=== PATIENT | female | born 2000 | race Caucasian/White ===

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

== ENCOUNTER 2018-06-01 13:46 | Emergency (ER) | payer SELFPAY ==
[~2018-06-01] VITALS: Ht 170.2 cm; Wt 77.3 kg
[~2018-06-01 13:46] MED LIST changes: +PREDNISONE10 MG PO; +PROAIR HFA0.09 MG/AC IH; +XANAX 0.5MG0.5 MG PO
[2018-06-01 13:53] VITALS: BP 133/77; TEMP 98.7
[2018-06-01] MEDS ORDERED: PREDNISONE20 MG PO (16:05)
[2018-06-01 18:12] VITALS: PULSE 113
== END 2018-06-01 18:12 | disposition home or self-care (01) ==
LOC: COL.ER 13:46
DX: J45.901 Unspecified asthma with (acute) exacerbation (principal)
CPT/HCPCS: J1100; J7512

== ENCOUNTER 2019-04-09 21:28 | Emergency (ER) | payer MEDICAID ==
[~2019-04-09] VITALS: Ht 170.2 cm; Wt 86.4 kg
[~2019-04-09 21:28] MED LIST changes: +PREDNISONE20 MG PO
[2019-04-09 21:31] VITALS: BP 124/64; TEMP 97.4
[2019-04-09] MEDS ORDERED: AMOXICILLIN 50500 MG PO (22:15)
[2019-04-09] MEDS ORDERED: ULTRAM 50MG TAB50 MG PO (22:15)
[2019-04-09 22:40] VITALS: PULSE 73
== END 2019-04-09 22:47 | disposition home or self-care (01) ==
LOC: COL.ER 21:28
DX: K02.9 Dental caries, unspecified (principal); J45.909 Unspecified asthma, uncomplicated; F17.210 Nicotine dependence, cigarettes, uncomplicated

== ENCOUNTER 2019-08-05 19:32 | Emergency (ER) | payer MEDICAID ==
[~2019-08-05] VITALS: Ht 170.2 cm; Wt 86.4 kg
[~2019-08-05 19:32] MED LIST changes: +AMOXICILLIN 50500 MG PO; +ULTRAM 50MG TAB50 MG PO
[2019-08-05 19:43] VITALS: BP 134/84; TEMP 98.2
[2019-08-05] MEDS ORDERED: KURVELO 30 MCG-1 TAB PO (20:00)
[2019-08-05 20:33] LABS: STREP SCREEN NEGATIVE
[2019-08-05] MEDS ORDERED: AMOXICILLIN 8751 TAB PO (20:40)
[2019-08-05 21:09] VITALS: PULSE 89
== END 2019-08-05 21:10 | disposition home or self-care (01) ==
LOC: COL.ER 19:32
PROVIDERS: Physician Assistant
DX: J03.90 Acute tonsillitis, unspecified (principal)
CPT/HCPCS: J8540

== ENCOUNTER 2023-01-23 16:37 | Inpatient (IN) | payer MEDICAID ==
[2023-01-23] VITALS (18 sets, daily range): BP systolic 113–142; BP diastolic 62–89; PULSE 73–98; TEMP 97.3–98.5
[~2023-01-23] VITALS: Ht 170.2 cm; Wt 93.2 kg
[~2023-01-23 16:37] MED LIST changes: +AMOXICILLIN 8751 TAB PO; +KURVELO 30 MCG-1 TAB PO; +PREDNISONE50 MG PO; +ZITHROMAX 250M250 MG PO
--- NOTE | 2023-01-23 16:50 | NUR ---
PT ambulatory to unit with spouse and daughter. Pt reports no vaginal bleeding, no lof, CTX every 2-3 min, positive movement. PT is scheduled for induction tomorrow. PT uncomfortable with CTX.
[2023-01-23 17:22] LABS: BASO # 0.1 K/mm3 (0.0-0.2); BASO % 0.3 % (0.0-2.0); EOS # 0.1 K/mm3 (0.0-0.7); EOS % 0.6 % (0.0-4.0); GRAN # 11.2 K/mm3 (1.4-6.5); HEMOGLOBIN 11.4 g/dl (12.5-16.0); LYMPH # 3.7 K/mm3 (1.2-3.4); LYMPH % 23.4 % (20.0-51.0); MEAN CELL VOLUME 86 fl (80.0-100.0); MEAN CORPUSCULAR HEMOGLOBIN 28 pg (27-31); MEAN CORPUSCULAR HGB CONC 33 g/dl (33.0-37.0); MEAN PLATELET VOLUME 11.8 fl (7.4-10.4); MONO # 0.8 K/mm3 (0.1-0.6); MONO % 5.2 % (1.7-9.3); PLATELET COUNT 274 K/mm3 (130-400); RED BLOOD COUNT 4.04 M/mm3 (4.10-5.30); REDCELL DISTRIBUTION WIDTH-CV 13.8 % (11.5-14.5)
[2023-01-23 17:31] LABS: HEMATOCRIT 34.9 % (37.0-47.0)
--- NOTE | 2023-01-23 18:00 | NUR ---
DR. TOWNSEND AT BEDSIDE FOR SVE AND AROM. SVE /-2. PT TOLERATED WELL. 180 AROM SMALL AMOUNT OF CLEAR FLUID. EFM CAT 1.
[2023-01-23 18:15] LABS: ALBUMIN 2.5 gm/dL (3.5-5.0); BILIRUBIN,TOTAL 0.3 mg/dL (0.2-1.2); CALCIUM 8.5 mg/dL (8.4-10.2); CREATININE, serum 0.67 mg/dL (0.57-1.11); POTASSIUM 3.4 mmol/L (3.5-4.5); TOTAL PROTEIN 6.9 gm/dL (6.2-8.1)
[2023-01-23] MEDS ORDERED: PROVENTIL0.09 MG/A1 IH (18:17)
[2023-01-23] MEDS ORDERED: ARNUITY IH (18:17)
[2023-01-23] MEDS ORDERED: WELLBUTRIN XL300 M1 PO (18:18)
[2023-01-23] MEDS ORDERED: ACTIGALL 300MG300 MG PO (18:18)
--- NOTE | 2023-01-23 21:00 | NUR ---
1821- PATIENT ASSISTED TO SIDE OF THE BED. DIFFICULTY TRACING HEART RATE DUE TO MATERNAL POSITIONING. PULSE OX APPLIED. 1824- RICK RADER AT BEDSIDE. EXPLAINS PROCEDURE AND RISK OF EPIDURAL. 1830- SINGLE SHOT ADMINISTERED BY RICK RADER. SEE ANESTHESIA RECORDS. 1838- PATIENT REPOSITIONED TO [facility]. PLAN OF CARE AND SAFETY PRECAUTIONS EXPLAINED TO PATIENT AND FAMILY. 1944- DIFFICULTY TRACING CONTRACTIONS DUE TO MATERNAL POSITONING. TOCO ADJUSTED. 1999- DIFFICULTY TRACING CONTRACTIONS DUE TO MATERNAL POSITONING. TOCO ADJUSTED. 2014- DIFFICULTY TRACING CONTRACTIONS DUE TO MATERNAL POSITIONING. TOCO ADJUSTED. 2027- DR. TOWNSEND NOTIFIIED OF SVE. WILL COME TO THE HOSPITAL FOR IMPENDING DELIVERY. 2034- CRUZ CATHETER REMOVED AND PERICARE PROVIDED. 2039- DR. TOWNSEND AT BEDSIDE. BED BROKEN DOWN FOR DELIVERY. 2044- SPONTANEOUS VAGINAL DELIVERY OF VIABLE BABY BOY. CORD CLAMPED BY DR. TOWNSEND AND CUT BY FOB. BABY TO MOTHERS ABDOMEN. DRIED AND STIMULATED. BABY CARES ASSUMED BY Maribel LOU RN. 2047- SPONTANEOUS DELIVERY OF INTACT PLACENTA. STARTED PITOCIN AT 333ML/HR PER PROTOCOL. 2099- RECOVERY STARTED.
--- NOTE | 2023-01-23 23:30 | NUR ---
2330- PATIENT ABLE TO LIFT BILATERAL LOWER EXTREMITIES. PATIENT SITTING ON EDGE OF BED. EPIDURAL CATHETER REMOVED WITH TIP INTACT. PATIENT TOLERATED WELL. PATIENT DENIES FEELING LIGHT HEADED. 2335- PATIENT TRANSFERRED TO RESTROOM FOLLOWING DELIVERY VIA [facility]. PERICARE PROVIDED. HOSPITAL GOWN CHANGED. PATIENT ABLE TO VOID WITHOUT DIFFICULTY. MESH UNDERWEAR, ICEPACK AND PAD ON. 2345- PATIENT TRANSFERRED TO ROOM VIA [facility]. PATIENT ORIENTED TO ROOM. PATIENT DENIES NEED FOR PAIN MEDICATION. PLAN OF CARE EXPLAINED. QUESTIONS INVITED AND ANSWERED.
[2023-01-24] VITALS: BP 114/56; PULSE 73
[2023-01-24 04:00] VITALS: BP 110/47; PULSE 61; TEMP 98.2
[2023-01-24] MEDS ORDERED: MOTRIN 800800 MG/TAB PO (06:46)
[2023-01-24 08:22] VITALS: BP 116/64; PULSE 75; TEMP 97.9
--- NOTE | 2023-01-24 10:17 | NUR ---
Initial visit; Parents thanked Patient Coordinator for offering congratulations and God's blessings for the of their son. Patient Coordinator thanked family for choosing our hospital and let them know Patient Coordinator is available to offer special "Blessings" for their son if they would like to think about it. They thanked Patient Coordinator.
[2023-01-24 17:00] VITALS: BP 129/71; PULSE 81; TEMP 97.8
[2023-01-24 20:45] VITALS: BP 122/60; PULSE 81; TEMP 98
--- NOTE | 2023-01-24 22:45 | NUR ---
Discharge instructions reviewed with patient, verbalized understanding. Pt seen ambulating off unit with belongings and .
== END 2023-01-24 22:45 | disposition home or self-care (01) | DRG 807 ==
LOC: LDRO 16:37 → LDR 17:09 → OB 17:09
PROVIDERS: Obstetrics & Gynecology; ADMIT Obstetrics & Gynecology
PROC: 10E0XZZ Delivery of Products of Conception, External Approach (ICD-10-PCS; principal; 2023-01-23)
PROC: 10907ZC Drainage of Amniotic Fluid, Therapeutic from Products of Conception, Via Natural or Artificial Opening (ICD-10-PCS; 2023-01-23)
DX: O26.643 Intrahepatic cholestasis of pregnancy, third trimester (principal); Z37.0 Single live birth; O99.214 Obesity complicating childbirth; J45.909 Unspecified asthma, uncomplicated; O99.62 Diseases of the digestive system complicating childbirth; Z3A.37 37 weeks gestation of pregnancy; O99.52 Diseases of the respiratory system complicating childbirth; K21.9 Gastro-esophageal reflux disease without esophagitis; E78.79 Other disorders of bile acid and cholesterol metabolism; K76.89 Other specified diseases of liver; O99.334 Smoking (tobacco) complicating childbirth; F17.210 Nicotine dependence, cigarettes, uncomplicated; O99.344 Other mental disorders complicating childbirth; F32.A Depression, unspecified; O71.82 Other specified trauma to perineum and vulva
CPT/HCPCS: J2405; J2590; J2795; J7120